=== PATIENT | female | born 1990 | race Caucasian/White ===

== ENCOUNTER → 2018-11-28 | Outpatient (CLI) | payer BC ==
[2014-01-09 09:05] VITALS: BP 114/59
[~2018-11-28] MED LIST: CIPR500T94 PO; IOHEXOL 300 MG/ML 75 ML VIAL. IV ONE; ONDA4TAB10 SL
--- NOTE | 2018-11-28 13:01 | RAD ---
PQRS Compliance Statement: One or more of the following individualized dose reduction techniques were utilized for this examination: 1. Automated exposure control 2. Adjustment of the mA and/or kV according to patient size 3. Use of iterative reconstruction technique PQRS Compliance Statement: One or more of the following individualized dose reduction techniques were utilized for this examination: 1. Automated exposure control 2. Adjustment of the mA and/or kV according to patient size 3. Use of iterative reconstruction technique CT head with and without contrast 11/28/2018 11:30 AM INDICATION: Headache and dizziness for several years COMPARISON: None available TECHNIQUE: Multiple axial CT images of the head were obtained from skull base through the vertex with and without intravenous contrast. FINDINGS: Head: Ventricles, sulci and basal cisterns are within normal limits. There is no hydrocephalus. Vaughan-white matter differentiation is normal. There is no acute intracranial hemorrhage. There is no mass, mass effect or midline shift. Posterior fossa is normal in appearance. 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 No suspicious enhancement is identified. Visualized portions of the orbits are normal. Paranasal sinuses are well aerated. Mastoid air cells are well aerated. Scalp and calvaria are normal. IMPRESSION: No acute intracranial hemorrhage. No suspicious enhancement is identified. 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 Electronically signed by: Christina Leon MD (11/28/2018 12:58 PM) [facility]
== END | disposition home or self-care (01) ==
LOC: CT 11:09
PROVIDERS: ATTEND Registered Nurse
DX: R42 Dizziness and giddiness (principal); E34.8 Other specified endocrine disorders; R51 Headache
CPT/HCPCS: 70470; Q9967